=== PATIENT | male | born 1960 | race Caucasian/White ===

== ENCOUNTER 2019-02-01 23:13 | Emergency (ER) | payer BC ==
[~2019-02-01] VITALS: Ht 172.7 cm; Wt 88.8 kg
[2019-02-01 23:20] VITALS: BP 142/85
[2019-02-01] MEDS ORDERED: PROPARACAINE OPHTH 0.5%, 15ML ONE (23:41)
--- NOTE | 2019-02-01 23:44 | NUR ---
Patient into bedside
--- NOTE | 2019-02-01 23:50 | NUR ---
REPORT RECEIVED FROM ANGELA BOSWELL. ASSUMED CARE OF PT
--- NOTE | 2019-02-02 01:37 | NUR ---
Patient/Caregiver given discharge instructions and they have confirmed that they understand the instructions. Patient ambulatory with steady gait.
[2019-02-02] MEDS ORDERED: MOXIFLOXACIN OPHTH O.5%, 3ML LEFTEYE SCH (09:00)
== END 2019-02-02 01:39 | disposition home or self-care (01) ==
LOC: ED 02-02 00:42
DX: T15.02XA Foreign body in cornea, left eye, initial encounter (principal); X58.XXXA Exposure to other specified factors, initial encounter; Y93.89 Activity, other specified; Y92.89 Other specified places as the place of occurrence of the external cause; Y99.8 Other external cause status
CPT/HCPCS: 65220; 99284